=== PATIENT | female | born 1955 | race Caucasian/White ===

== ENCOUNTER 2017-05-04 01:38 | Emergency (ER) | payer MEDICAID ==
[2017-05-04 01:38] VITALS: BMI 29.9
[2017-05-04] MEDS ORDERED: Sodium Chloride 0.9% 1,000 ML IV ONE (02:31)
[2017-05-04] MEDS ORDERED: Iohexol 240 (50 ml) PO ONE (02:32)
--- NOTE | 2017-05-04 02:33 | C.PDOC ---
Chief Complaint (Nursing): Abdominal Pain Past Medical History - Medical History PMH: Depression, Gastritis, HTN, Migraine Denies: Chronic Kidney Disease Surgical History: Endoscopy (SEPTEMBER 2015) Family History: States: Unknown Family Hx - Social History Hx Tobacco Use: No Hx Alcohol Use: No Hx Substance Use: No - Immunization History Hx Tetanus Toxoid Vaccination: No Hx Influenza Vaccination: Yes Hx Pneumococcal Vaccination: No Disposition - Disposition
--- NOTE | 2017-05-04 02:33 | C.PDOC ---
History Of Present Illness 61 y/o female presents to the ED complaining of left-sided abdominal pain and back pain, onset while sleeping tonight. Pain is associated with intermittent nausea and vomiting. Denies any fevers, chills, or diarrhea. Patient also complaining of dysuria. No prior Hx of kidney stones. PMD: Gamal Time Seen by Provider: 05/04/17 02:25 Chief Complaint (Nursing): Abdominal Pain History Per: Patient History/Exam Limitations: no limitations Onset/Duration Of Symptoms: Hrs Current Symptoms Are (Timing): Still Present Location Of Pain/Discomfort: LUQ, LLQ Radiation Of Pain To:: Back Past Medical History Reviewed: Historical Data, Nursing Documentation, Vital Signs Vital Signs: Last Vital Signs Temp 97.9 F 05/04/17 06:25 Pulse 74 05/04/17 06:25 Resp 18 05/04/17 06:25 BP 118/63 05/04/17 06:25 Pulse Ox 99 05/04/17 06:25 - Medical History PMH: Depression, Gastritis, HTN, Migraine Denies: Chronic Kidney Disease Surgical History: Endoscopy (SEPTEMBER 2015) Family History: States: Unknown Family Hx - Social History Hx Tobacco Use: No Hx Alcohol Use: No Hx Substance Use: No - Immunization History Hx Tetanus Toxoid Vaccination: No Hx Influenza Vaccination: Yes Hx Pneumococcal Vaccination: No Review Of Systems Except As Marked, All Systems Reviewed And Found Negative. Constitutional: Negative for: Fever, Chills Gastrointestinal: Positive for: Nausea, Vomiting, Abdominal Pain (left). Negative for: Diarrhea Genitourinary: Positive for: Dysuria. Negative for: Hematuria Musculoskeletal: Positive for: Back Pain (left) Physical Exam - Physical Exam Appears: Non-toxic, No Acute Distress Skin: Normal Color, Warm, Dry Head: Atraumatic, Normacephalic Eye(s): bilateral: Normal Inspection, PERRL, EOMI Oral Mucosa: Moist Neck: Normal ROM, Supple Chest: Symmetrical Cardiovascular: Rhythm Regular, No Murmur Respiratory: Normal Breath Sounds, No Accessory Muscle Use, No Wheezing Gastrointestinal/Abdominal: Soft, Tenderness (to LLQ), No Guarding, No Rebound Back: CVA Tenderness (left), No Vertebral Tenderness Extremity: Bilateral: Atraumatic, No Pedal Edema, Normal Color And Temperature Neurological/Psych: Oriented x3, Normal Speech ED Course And Treatment - Laboratory Results Result Diagrams: 05/04/17 02:52 05/04/17 02:52 - CT Scan/US CT abd/pelvis Other Rad Studies (CT/US): Read By Radiologist, Radiology Report Reviewed CT/US Interpretation: FINDINGS: Slight elevation of the right hemidiaphragm. The liver is normal. The spleen is normal. The pancreas is normal. No gallstones. No hydronephrosis or perinephric stranding. The appendix is identified on coronal images 49 through 59. The proximal appendix is nondilated. and fills with contrast. The appendix tip dilated measuring 7-8 mm and does not fill with contrast. Although the mild dilation and lack of filling could be indicative of early appendicitis, there is no wall. hyperemia or stranding in the surrounding fat at least some of which could be expected with an acute. infectious/inflammatory process. Conceivably, findings could be secondary to small mucocele. although could certainly just represent the patient's baseline. I would base followup imaging on. clinical symptoms in this region. There is a moderate amount of stool within the left colon. IMPRESSION: Mild left-sided constipation. Nondilated opacified proximal appendix. Minimally dilated distal appendix with no additional. supporting findings of appendicitis. Please see discussion above. Thank you for allowing us to participate in the care of your patient. Dictated and Authenticated by: Margarita Fried MD. 05/04/2017 6:23 AM Eastern Time ([place] & [place]) Medical Decision Making Medical Decision Making: Time: 2:30 Initial Plan: --Basic blood work --Lipase --Urine test --Urinalysis --Urine culture --CT Abd/Pelvis w/ PO & IV contrast --IVF hydration --30 mg Toradol IVP Disposition Counseled Patient/Family Regarding: Diagnosis - Disposition Referrals: [facility] [Outside] Disposition: HOME/ ROUTINE Disposition Time: 06:31 Condition: STABLE Prescriptions: Ciprofloxacin [Cipro] 1 tab PO BID #14 tab Phenobarb/Hyoscy/Atropine/Scop [ Tablet] 16.2 mg PO Q6 #10 tablet Instructions: Urinary Tract Infection, Adult (DC), Acute Abdomen (Belly Pain), Adult (DC) Forms: [facility] (Bots[place]an), Gen Discharge Inst Nepali Print Language: IRISH - POA Present On Arrival: None - Clinical Impression Clinical Impression: Abdominal pain, UTI (urinary tract infection) - Scribe Statement The provider has reviewed the documentation as recorded by the Kayibe Claudette Mo Provider Attestation: All medical record entries made by the Kayibe were at my direction and personally dictated by me. I have reviewed the chart and agree that the record accurately reflects my personal performance of the history, physical exam, medical decision making, and the department course for this patient. I have also personally directed, reviewed, and agree with the discharge instructions and disposition.
[2017-05-04 02:55] LABS: BASO # 0.1 K/uL (0.0-0.2); BASO % 1.1 % (0.0-2.0); EOS # 0.2 K/uL (0.0-0.7); EOS % 4.6 % (0.0-4.0); LYMPH # 1.4 K/uL (1.0-4.3); LYMPH % 25.9 % (20.0-40.0); MEAN CELL VOLUME 88.4 fL (81.0-99.0); MEAN CORPUSCULAR HEMOGLOBIN 29.8 pg (27.0-31.0); MEAN CORPUSCULAR HGB CONC 33.7 g/dL (33.0-37.0); MEAN PLATELET VOLUME 8.6 fL (7.2-11.7); MONO # 0.4 K/uL (0.0-0.8); MONO % 7.2 % (0.0-10.0); NEUT # 3.2 K/uL (1.8-7.0); NEUT % 61.2 % (50.0-75.0); RBC 4.37 Mil/uL (3.80-5.20); RED CELL DISTRIBUTION WIDTH 14.4 % (11.5-14.5); WHITE BLOOD COUNT 5.3 K/uL (4.8-10.8)
[2017-05-04 02:57] LABS: HCG,QUALITATIVE URINE NEGATIVE (NEGATIVE)
[2017-05-04 02:59] LABS: SQUAMOUS EPITHIAL 14 /hpf (0-5); URINE BACTERIA RARE (<OCC); URINE BILIRUBIN NEGATIVE (NEGATIVE); URINE BLOOD NEGATIVE (NEGATIVE); URINE CLARITY Hazy (Clear); URINE COLOR Straw (YELLOW); URINE GLUCOSE (UA) NORMAL (Normal); URINE LEUKOCYTE ESTERASE 3+ Leu/uL (Negative); URINE PROTEIN NEGATIVE (NEGATIVE); URINE UROBILINOGEN NORMAL mg/dL (0.2-1.0)
[2017-05-04 03:11] LABS: ALB/GLOB RATIO 1.2 (1.0-2.1); ALBUMIN 3.8 g/dL (3.5-5.0); ALT/SGPT 25 U/L (9-52); AST/SGOT 55 U/L (14-36); BLOOD UREA NITROGEN 18 mg/dL (7-17); CALCIUM 8.6 mg/dl (8.6-10.4); GFR AFRICAN-AMERICAN > 60; GFR NON-AFRICAN AMERICAN > 60; LIPASE 338 U/L (23-300)
[2017-05-04] MEDS ORDERED: Iohexol 240 (50 ml) ONE (03:22)
[2017-05-04] MEDS ORDERED: Sodium Chloride 0.9% 1,000 ML ONE (03:22)
[2017-05-04] MEDS ORDERED: Iohexol 350mgl/ml 50 ML ONE (04:23)
[2017-05-04 05:48] VITALS: O2SAT 99
--- NOTE | 2017-05-04 06:24 | CT ---
EXAM: CT Abdomen and Pelvis With Intravenous Contrast EXAM DATE/TIME: 05/04/2017 2:32 AM CLINICAL HISTORY: 61 years old, female; Pain; Abdominal pain; Prior surgery; Surgery type: Tummy surgery; Additional info: Left sided abd pain/tenderness TECHNIQUE: Axial computed tomography images of the abdomen and pelvis with intravenous contrast. All CT scans at this facility use one or more dose reduction techniques, viz.: automated exposure control; ma/kV adjustment per patient size (including targeted exams where dose is matched to indication; i.e. head); or iterative reconstruction technique. Coronal and sagittal reformatted images were created and reviewed. CONTRAST: 100 mL of [id number] administered intravenously. COMPARISON: No relevant prior studies available. FINDINGS: Slight elevation of the right hemidiaphragm. The liver is normal. The spleen is normal. The pancreas is normal. No gallstones. No hydronephrosis or perinephric stranding. The appendix is identified on coronal images 49 through 59. The proximal appendix is nondilated and fills with contrast. The appendix tip dilated measuring 7-8 mm and does not fill with contrast. Although the mild dilation and lack of filling could be indicative of early appendicitis, there is no wall hyperemia or stranding in the surrounding fat at least some of which could be expected with an acute infectious/inflammatory process. Conceivably, findings could be secondary to small mucocele although could certainly just represent the patient's baseline. I would base followup imaging on clinical symptoms in this region. There is a moderate amount of stool within the left colon. IMPRESSION: Mild left-sided constipation. Nondilated opacified proximal appendix. Minimally dilated distal appendix with no additional supporting findings of appendicitis. Please see discussion above.
[2017-05-04 06:26] VITALS: BP 118/63; PULSE 74; RESP 18; TEMP 97.9
== END 2017-05-04 06:44 | disposition home or self-care (01) ==
LOC: C.ER 01:38
DX: N39.0 Urinary tract infection, site not specified (principal); R10.32 Left lower quadrant pain
CPT/HCPCS: 74177; 80053; 81001; 83690; 84703; 85025; 87086; 96374; 99285; J1885; J7040; Q9966; Q9967